=== PATIENT | female | born 1975 | race Caucasian/White ===

== ENCOUNTER → 2020-09-06 | Day surgery (SDC) | payer OTHER ==
[~2020-09-06] MED LIST: ACETAMINOPHEN 1000 MG/100 ML 100 ML IV ONE; BENADRYL25 M1 PO; BUPIVACAINE HCL 0.5% INJ 30 ML VIAL INJ ONE; DEXAMETHASONE SOD PHOS INJ 4 MG/ML VIAL ONE; ESTROVEN 155 M155 MG PO; FENTANYL CITRATE/PF 100MCG/2 ML INJ ONE; KETOROLAC TROMETHAMINE 30 MG/ML VIAL ONE; LIDOCAINE HCL 2% LOCAL INJ 5 ML SDV VIAL INJ ONE; MIDAZOLAM HCL 2 MG/2 ML VIAL ONE; MORPHINE SULFATE INJ 2 MG/ML SYR ONE; OMEGA 3 1,0001 EACH PO; ONDANSETRON HCL INJ 2MG/ML 2ML 2 MG/ML VIAL ONE; POVIDONE IODINE 0.05% 0.05 % ML PO ONE; PROPOFOL IV EMULSION 10 MG/ML 20 ML VIAL ONE; RED YEAST RICE600 MG PO; SEVOFLURANE INHAL SOLN 250 ML PEN BTL ONE; SODIUM CHLORIDE 0.9% 50ML 50 ML ONE
[2020-09-06 09:10] VITALS: BP 123/79
== END | disposition home or self-care (01) ==
LOC: OR 05:23
PROVIDERS: ATTEND Podiatrist Foot & Ankle Surgery
DX: M20.11 Hallux valgus (acquired), right foot (principal); Z88.2 Allergy status to sulfonamides; Z91.040 Latex allergy status; E66.01 Morbid (severe) obesity due to excess calories; Z86.16 Personal history of COVID-19; E78.5 Hyperlipidemia, unspecified
CPT/HCPCS: 28297; J0131; J0690; J1100; J1885; J2001; J2250; J2270; J2405; J2704; J3010